=== PATIENT | female | born 1970 | race African-American/Black ===

== ENCOUNTER 2017-05-15 17:36 | Emergency (ER) | payer OTHER ==
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
[2017-05-15 17:57] VITALS: BP 122/78; PULSE 71; TEMP 98.8; BMI 34.0
--- NOTE | 2017-05-15 18:36 | PDOC ---
History of Present Illness - General Chief Complaint: Injury Stated Complaint: KNEE INJURY Time Seen by Provider: 05/15/17 17:54 Past History - Past Medical History Allergies/Adverse Reactions: Allergies Allergy/AdvReac Type Severity Reaction Status Date / Time No Known Allergies Allergy Verified 05/15/17 17:57 Home Medications: Ambulatory Orders NK [No Known Home Medication] 05/15/17 COPD: No Other medical history: NONE - Suicide/Smoking/Psychosocial Hx Smoking History: Never smoked Hx Alcohol Use: No Drug/Substance Use Hx: No *Physical Exam - Vital Signs Last Vital Signs Temp Pulse Resp BP Pulse Ox 98.8 F 71 20 122/78 100 05/15/17 17:53 05/15/17 17:53 05/15/17 17:53 05/15/17 17:53 05/15/17 17:53 *DC/Admit/Observation/Transfer Diagnosis at time of Disposition: Right knee sprain Qualifiers: Encounter type: initial encounter Involved ligament of knee: unspecified ligament Qualified Code(s): S83.91XA - Sprain of unspecified site of right knee , initial encounter - Discharge Dispostion Disposition: HOME Condition at time of disposition: Good Admit: No - Referrals Referrals: Rosalie Horvath MD [Primary Care Provider] - Isaac Hussein MD [Staff Physician] - - Patient Instructions Printed Discharge Instructions: DI for Knee Sprain Additional Instructions: You have a knee sprain. Please take ibuprofen 800mg three times a day not to exceed 3,000mg a day. Please keep the Jem wrap on her knee to help reduce the swelling. Ice the knee 20 minutes for 5 times a day. Keep your knee elevated when you resting. Wear supportive shoes with good arch support. Follow-up with orthopedics tomorrow or Saturday. Return to the emergency department if you have worsening pain, numbness and tingling in your leg, weakness of the leg, or any changes in your symptoms. - Post Discharge Activity Forms/Work/School Notes: Back to Work
== END 2017-05-15 18:58 | disposition home or self-care (01) ==
LOC: JERFT 17:36
DX: S83.91XA Sprain of unspecified site of right knee, initial encounter (principal); X58.XXXA Exposure to other specified factors, initial encounter; Y93.89 Activity, other specified; Y92.9 Unspecified place or not applicable
CPT/HCPCS: 99281-25

== ENCOUNTER 2019-01-01 12:31 | Emergency (ER) | payer OTHER ==
[2019-01-01 12:39] VITALS: BP 137/90; PULSE 94; TEMP 98.7; BMI 34.1
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
== END 2019-01-01 15:23 | disposition home or self-care (01) ==
LOC: JERFT 12:31
DX: S02.2XXA Fracture of nasal bones, initial encounter for closed fracture (principal); S05.12XA Contusion of eyeball and orbital tissues, left eye, initial encounter; W50.0XXA Accidental hit or strike by another person, initial encounter; Y92.89 Other specified places as the place of occurrence of the external cause
CPT/HCPCS: 70486-TC; 84703; 99281-25